=== PATIENT | male | born 1940 | race Caucasian/White ===

== ENCOUNTER 2022-03-31 10:05 | Emergency (ER) | payer OTHER, BC ==
[2022-03-31 10:20] VITALS: BP 120/67; PULSE 108; RESP 20; TEMP 97.7; BMI 27.9
[2022-03-31 12:03] LABS: URINE APPEARANCE CLEAR; URINE BILIRUBIN NEGATIVE (NEGATIVE); URINE COLOR YELLOW; URINE GLUCOSE (UA) NEGATIVE (NEGATIVE)
[2022-03-31 12:04] LABS: PH,URINE 5.5 (5.0-8.0); URINE KETONE NEGATIVE (NEGATIVE); URINE LEUK ESTERASE 1+ (NEGATIVE); URINE NITRITE NEGATIVE (NEGATIVE); URINE PROTEIN NEGATIVE (NEGATIVE); URINE UROBILINOGEN 0.2 mg/dL (0.2-1.0)
[2022-03-31 12:05] LABS: URINE RBC 0-3 /uL (0-23.9)
[2022-03-31] MEDS ORDERED: IBUPROFEN 400 MG TABLET (FP) PO ONE ×2 (12:39→13:03)
== END 2022-03-31 13:09 | disposition home or self-care (01) ==
LOC: JER 10:05
DX: M54.50 Low back pain, unspecified (principal)
CPT/HCPCS: 76775-TC; 81003; 87086; 99284-25

== ENCOUNTER → 2022-07-01 | Day surgery (SDC) | payer OTHER, BC ==
[2022-06-29 12:32] VITALS: BMI 26.5
[~2022-07-01] MED LIST: BUPIVACAINE HCL/PF 0.75% 10 ML VIAL NR ONE; LIDOCAINE HCL 1% PRESERVATIVE FREE - 30ML VIAL IJ ONE
[2022-07-01 11:33] VITALS: BP 148/76; PULSE 90; RESP 18; TEMP 98.2
== END | disposition home or self-care (01) ==
LOC: JASU-SURG 04:03
PROVIDERS: ATTEND Pain Medicine Pain Medicine
PROC: BR16YZZ Fluoroscopy of Lumbar Facet Joint(s) using Other Contrast (ICD-10-PCS; 2022-07-01)
PROC: 3E0T3BZ Introduction of Anesthetic Agent into Peripheral Nerves and Plexi, Percutaneous Approach (ICD-10-PCS; principal; 2022-07-01 13:00)
DX: M47.816 Spondylosis without myelopathy or radiculopathy, lumbar region (principal); I10 Essential (primary) hypertension
CPT/HCPCS: 76000-TC-FY

== ENCOUNTER 2022-07-29 04:03 | Day surgery (SDC) | payer OTHER, BC ==
[2022-07-27 14:22] VITALS: BMI 26.5
[2022-07-29] MEDS ORDERED: LIDOCAINE HCL/PF 1% SDV 5ML VIAL ONE ×2 (07:46→11:25)
[2022-07-29] MEDS ORDERED: BUPIVACAINE HCL/PF 0.75% 10 ML VIAL ONE (07:46)
[2022-07-29] MEDS ORDERED: LIDOCAINE 1% P/F 10 MG/ML VIAL INF ONE (11:33)
[2022-07-29] MEDS ORDERED: BUPIVACAINE HCL/PF 0.75% 10 ML VIAL NR ONE (11:35)
[2022-07-29 12:46] VITALS: BP 148/70; PULSE 63; RESP 20; TEMP 98.7
[2022-07-29] MEDS ORDERED: ACETAMINOPHEN 500 MG TABLET (FP) PO PRN (16:04)
== END 2022-07-29 12:25 | disposition home or self-care (01) ==
LOC: JASU-SURG 04:03
PROVIDERS: ATTEND Pain Medicine Pain Medicine
PROC: BR16YZZ Fluoroscopy of Lumbar Facet Joint(s) using Other Contrast (ICD-10-PCS; 2022-07-29)
PROC: 3E0T3BZ Introduction of Anesthetic Agent into Peripheral Nerves and Plexi, Percutaneous Approach (ICD-10-PCS; principal; 2022-07-29 12:00)
DX: M47.816 Spondylosis without myelopathy or radiculopathy, lumbar region (principal)
CPT/HCPCS: 76000-TC-FY

== ENCOUNTER 2022-08-23 03:59 | Day surgery (SDC) | payer OTHER, BC ==
[2022-08-19 15:45] VITALS: BMI 26.5
[~2022-08-23 03:59] MED LIST changes: -LIDOCAINE HCL 1% PRESERVATIVE FREE - 30ML VIAL IJ ONE; +LIDOCAINE HCL/PF 2% SDV 5ML VIAL INF ONE
[2022-08-23] MEDS ORDERED: LIDOCAINE HCL/PF 1% SDV 5ML VIAL ONE (07:25)
[2022-08-23] MEDS ORDERED: DEXAMETHASONE SOD PHOSPHATE 10 MG/1 ML VIAL ONE (07:25)
[2022-08-23] MEDS ORDERED: BUPIVACAINE HCL/PF 0.75% 10 ML VIAL ONE (07:25)
[2022-08-23] MEDS ORDERED: LIDOCAINE HCL/PF 2% SDV 5ML VIAL ONE (07:35)
[2022-08-23 09:23] VITALS: TEMP 97.9
[2022-08-23] MEDS ORDERED: ACETAMINOPHEN 500 MG TABLET (FP) PO PRN (11:00)
[2022-08-23] MEDS ORDERED: LIDOCAINE HCL 1% PRESERVATIVE FREE - 30ML VIAL IJ ONE (11:14)
[2022-08-23] MEDS ORDERED: LIDOCAINE HCL/PF 2% SDV 5ML VIAL INF ONE (11:24)
[2022-08-23] MEDS ORDERED: BUPIVACAINE HCL/PF 0.75% 10 ML VIAL NR ONE (11:32)
[2022-08-23 12:05] VITALS: BP 132/71; PULSE 60; RESP 20
== END 2022-08-23 12:40 | disposition home or self-care (01) ==
LOC: JASU-SURG 03:59
PROVIDERS: ATTEND Pain Medicine Pain Medicine
PROC: 015B3ZZ Destruction of Lumbar Nerve, Percutaneous Approach (ICD-10-PCS; principal; 2022-08-23 11:00)
DX: M47.816 Spondylosis without myelopathy or radiculopathy, lumbar region (principal)
CPT/HCPCS: 76000-TC-FY; J1100

== ENCOUNTER 2022-09-23 04:08 | Day surgery (SDC) | payer OTHER, BC ==
[2022-09-20 13:21] VITALS: BMI 26.5
[~2022-09-23 04:08] MED LIST changes: -BUPIVACAINE HCL/PF 0.75% 10 ML VIAL NR ONE; +BUPIVACAINE HCL/PF 0.75% 10 ML VIAL PNB ONE; +DEXAMETHASONE SOD PHOSPHATE 10 MG/1 ML VIAL IVPUSH ONE; +LIDOCAINE 1% P/F 10 MG/ML VIAL INF ONE
[2022-09-23] MEDS ORDERED: LIDOCAINE HCL/PF 2% SDV 5ML VIAL ONE (07:20)
[2022-09-23] MEDS ORDERED: LIDOCAINE HCL/PF 1% SDV 5ML VIAL ONE (07:21)
[2022-09-23] MEDS ORDERED: DEXAMETHASONE SOD PHOSPHATE 10 MG/1 ML VIAL ONE (07:21)
[2022-09-23] MEDS ORDERED: BUPIVACAINE HCL/PF 0.75% 10 ML VIAL ONE (07:21)
[2022-09-23] MEDS ORDERED: LIDOCAINE 1% P/F 10 MG/ML VIAL INF ONE (10:39)
[2022-09-23] MEDS ORDERED: LIDOCAINE HCL/PF 2% SDV 5ML VIAL INF ONE (10:40)
[2022-09-23] MEDS ORDERED: BUPIVACAINE HCL/PF 0.75% 10 ML VIAL PNB ONE (10:46)
[2022-09-23] MEDS ORDERED: DEXAMETHASONE SOD PHOSPHATE 10 MG/1 ML VIAL IVPUSH ONE (10:54)
[2022-09-23 11:30] VITALS: RESP 18
[2022-09-23 12:27] VITALS: BP 118/70; PULSE 78; TEMP 98.2
[2022-09-23] MEDS ORDERED: ACETAMINOPHEN 500 MG TABLET (FP) PO PRN (14:59)
== END 2022-09-23 11:35 | disposition home or self-care (01) ==
LOC: JASU-SURG 04:08
PROVIDERS: ATTEND Pain Medicine Pain Medicine
PROC: 015B3ZZ Destruction of Lumbar Nerve, Percutaneous Approach (ICD-10-PCS; principal; 2022-09-23 11:15)
DX: M47.816 Spondylosis without myelopathy or radiculopathy, lumbar region (principal)
CPT/HCPCS: 76000-TC-FY; J1100

== ENCOUNTER 2023-03-04 20:06 | Emergency (ER) | payer OTHER, BC ==
[2023-03-04 20:20] VITALS: BP 146/61; PULSE 92; RESP 18; TEMP 98.2; BMI 26.5
[2023-03-04] MEDS ORDERED: ACETAMINOPHEN 500 MG TABLET (FP) PO ONE (20:49)
[2023-03-04] MEDS ORDERED: ACETAMINOPHEN 500 MG TABLET (FP) ONE (20:56)
[2023-03-04] MEDS ORDERED: CEPHALEXIN MONOHYDRATE 500 MG CAPSULE (UD) PO ONE (21:21)
[2023-03-04] MEDS ORDERED: CEPHALEXIN MONOHYDRATE 500 MG CAPSULE (UD) ONE (21:26)
== END 2023-03-04 21:32 | disposition home or self-care (01) ==
LOC: JER 20:06
DX: S59.912A Unspecified injury of left forearm, initial encounter (principal); S80.01XA Contusion of right knee, initial encounter; W19.XXXA Unspecified fall, initial encounter
CPT/HCPCS: 73090-TC-LT-FY; 73110-TC-LT-FY; 99283-25

== ENCOUNTER 2023-05-07 19:49 | Emergency (ER) | payer OTHER, BC ==
[2023-05-07 19:58] VITALS: BP 139/66; PULSE 123; RESP 20; TEMP 100.1; BMI 27.2
[2023-05-07] MEDS ORDERED: SODIUM CHLORIDE 0.9% 500 ML INFUS.BAG IV ONE (20:30)
[2023-05-07] MEDS ORDERED: ACETAMINOPHEN 1000 MG/100 ML BAG IVPB ONE (20:30)
[2023-05-07 21:16] LABS: BASO % 0.5 % (0-2.0); EOS % 1.9 % (0-4.5); HEMATOCRIT 36.8 % (35.4-49); HEMOGLOBIN 12.5 GM/dL (11.7-16.9); LYMPH % 2.3 % (8-40); MCHC 33.9 g/dl (32.0-35.9); MEAN CELL VOLUME 115.1 fl (80-96); MEAN PLT VOLUME 6.8 fl (7.5-11.1); NEUT % 84.3 % (42.8-82.8); PLATELET COUNT 306 10^3/uL (134-434); RDW 13.2 % (11.9-15.9); WHITE BLOOD COUNT 14.8 K/mm3 (4.0-10.0)
[2023-05-07 21:20] LABS: EPI CELLS 3 /uL (0-25.1); HYALINE CASTS 8 /uL (0-3.1); URINE APPEARANCE CLOUDY; URINE BACTERIA 114 /uL (0-1359); URINE BILIRUBIN NEGATIVE (NEGATIVE); URINE COLOR YELLOW; URINE GLUCOSE (UA) NEGATIVE (NEGATIVE); URINE KETONE TRACE (NEGATIVE); URINE LEUK ESTERASE 1+ (NEGATIVE); URINE NITRITE NEGATIVE (NEGATIVE); URINE PROTEIN 2+ (NEGATIVE); URINE RBC 106 /uL (0-23.9); URINE WBC 633 /uL (0-25.8)
[2023-05-07 21:25] LABS: INR 1.21 (0.83-1.09)
[2023-05-07 21:31] LABS: POTASSIUM 4.4 mmol/L (3.5-5.1)
[2023-05-07 21:34] LABS: CALCIUM 8.6 mg/dL (8.5-10.1)
[2023-05-07 21:35] LABS: ALBUMIN 3.4 g/dl (3.4-5.0); BLOOD UREA NITROGEN 17.2 mg/dL (7-18)
[2023-05-07 21:38] LABS: CREATININE 1.2 mg/dL (0.55-1.3)
[2023-05-07 21:39] LABS: BILIRUBIN,TOTAL 0.4 mg/dL (0.2-1); TOT PROT 6.6 g/dl (6.4-8.2)
[2023-05-07] MEDS ORDERED: SULFAMETHOXAZOLE/TRIMETHOPRIM 800MG/160MG D.S. TABLET PO ONE (21:45)
[2023-05-07] MEDS ORDERED: ALBUTEROL SO4 2.5/IPRATROPIUM 0.5 INH SOL 3 ML VIAL.NEB. NEB ONE (22:01)
[2023-05-07] MEDS ORDERED: ATORVASTATIN CA 40 MG TABLET (FP) ONE (22:02)
[2023-05-07] MEDS ORDERED: SENNOSIDES 8.6MG TABLET (FP) PO ONE (22:02)
[2023-05-07] MEDS ORDERED: CEFTRIAXONE 1 GM in DEXTROSE 5%-WATER - 50 ML IVPB ONE (22:09)
[2023-05-07] MEDS ORDERED: SULFAMETHOXAZOLE/TRIMETHOPRIM 800MG/160MG D.S. TABLET ONE (22:14)
[2023-05-07] MEDS ORDERED: CEFTRIAXONE 1 GM/50 ML BAG ONE (22:15)
[2023-05-07 22:28] LABS: ANISOCYTOSIS 3+; MACROCYTOSIS 2+
== END 2023-05-07 22:55 | disposition home or self-care (01) ==
LOC: JER 19:49
DX: R50.9 Fever, unspecified (principal); N39.0 Urinary tract infection, site not specified; Z20.822 Contact with and (suspected) exposure to COVID-19
CPT/HCPCS: 0241U-QW; 36415; 71045-TC-FY; 80053; 81003; 83605; 85025; 85610; 85730; 87040; 87086; 87186; 99285-25

== ENCOUNTER 2023-10-21 13:46 | Emergency (ER) | payer OTHER, BC ==
[2023-10-21 13:54] VITALS: BP 134/74; PULSE 79; RESP 16; TEMP 99.3; BMI 112.6
[2023-10-21] MEDS ORDERED: ACETAMINOPHEN 325 MG TABLET (FP) ONE (14:54)
[2023-10-21] MEDS: ACETAMINOPHEN 500 MG TABLET (FP) PO ONE (14:57)
[2023-10-21] MEDS ORDERED: SULFAMETHOXAZOLE/TRIMETHOPRIM 800MG/160MG D.S. TABLET ONE (15:28)
[2023-10-21] MEDS: SULFAMETHOXAZOLE/TRIMETHOPRIM 800MG/160MG D.S. TABLET PO ONE (15:32)
== END 2023-10-21 16:36 | disposition home or self-care (01) ==
LOC: JER 13:46
DX: L03.113 Cellulitis of right upper limb (principal)
CPT/HCPCS: 73090-TC-RT-FY; 99283-25

== ENCOUNTER 2024-10-24 09:41 | Emergency (ER) | payer OTHER, BC ==
[2024-10-24 09:56] VITALS: BMI 25.8
[2024-10-24 11:28] LABS: ABSOLUTE IMMATURE GRANULOCYTES 0.02 x10^3/uL (0.0-0.031); BASOPHILS # 0.07 x10^3/uL (0.01-0.08); EOSINOPHIL % 15.1 % (0.8-7.0); EOSINOPHILS # 1.01 x10^3/uL (0.04-0.54); MCHC 34.9 g/dl (32.3-36.5); MEAN CELL VOLUME 115.0 fl (79.0-92.2); MEAN PLT VOLUME 8.9 fl (9.4-12.4); MONOCYTE # 0.59 x10^3/uL (0.30-0.82); MONOCYTE % 8.8 % (5.3-12.2); RDW 12.9 % (12.6-16.6)
[2024-10-24 11:54] LABS: GLUCOSE,RANDOM 104.0 mg/dL (74-106)
[2024-10-24 11:55] LABS: CO2 24.0 mmol/L (21-32)
[2024-10-24 11:58] LABS: CREATININE 1.4 mg/dL (0.55-1.3); SGOT/AST 62.0 U/L (15-37); SGPT/ALT 23.0 U/L (13-61)
[2024-10-24 11:59] LABS: TOT PROT 7.0 g/dl (6.4-8.2)
[2024-10-24 12:00] LABS: ALK PHOS 78.0 U/L (45-117)
[2024-10-24 12:55] LABS: HCV DIAGNOSTIC IN-HOUSE W/RFLX NON-REACTIVE (NONREACTIVE); HIV INTERPRETATION NEGATIVE (NEGATIVE)
[2024-10-24 13:55] VITALS: BP 123/68; PULSE 65; RESP 20; TEMP 97.5
== END 2024-10-24 14:36 | disposition home or self-care (01) ==
LOC: JER 09:41
DX: R00.2 Palpitations (principal); I49.8 Other specified cardiac arrhythmias; R07.89 Other chest pain
CPT/HCPCS: 36415; 71045-TC-FY; 80053; 83735; 84132; 84484; 85025; 86803; 87389; 93005; 93010; 99285-25